=== PATIENT | male | born 1965 | race Hispanic/Latino ===

== ENCOUNTER 2018-06-03 14:26 | Outpatient (CLI) | payer SELFPAY | END 2018-06-03 14:27 | disposition home or self-care (01) | LOC: WCC 14:26 | PROVIDERS: ATTEND Family Medicine | DX: T81.89XD Other complications of procedures, not elsewhere classified, subsequent encounter (principal) | CPT/HCPCS: 97605 ==

== ENCOUNTER 2018-06-06 14:11 | Outpatient (CLI) | payer SELFPAY | END 2018-06-06 14:12 | disposition home or self-care (01) | LOC: WCC 14:11 | PROVIDERS: ATTEND Family Medicine | DX: T81.89XD Other complications of procedures, not elsewhere classified, subsequent encounter (principal) | CPT/HCPCS: 97605 ==

== ENCOUNTER 2018-06-10 09:02 | Outpatient (CLI) | payer MEDICARE, SELFPAY ==
[2018-06-10] MEDS ORDERED: Sodium Chloride 0.9% 15 ML NEB ONE (10:22)
--- NOTE | 2018-06-10 11:43 | HP ---
DATE OF ADMISSION: 06/10/2018 HISTORY OF PRESENT ILLNESS: Mr. Tyrel Bernal is a very pleasant 52-year-old gentleman who presen ts to the Wound Center for evaluation of a rectal wound subsequent to surgery for rectal carcinoma at [facility]. The patient states that he also received chemotherapy and radiation therapy for re ctal carcinoma, which he completed approximately 2 years ago. An ileostomy was placed at the time of his surgery. He states that for the nonhealing surgical wound, he received negative pressure therap y for approximately 6-7 months. The patient states he was referred to Dr. Norman in [place] for evalu ation for ileostomy takedown. The patient states that ileostomy takedown was not able to be accompli shed and after surgery, negative pressure therapy for the rectal wound was resumed. The patient stat es that a nephrostomy tube on the left was placed approximately 3 weeks ago. He states that prior to nephrostomy tube placement, urine was draining into his wound VAC canister. PAST MEDICAL HISTORY: Rectal carcinoma. PAST SURGICAL HISTORY: Surgery for rectal carcinoma as per [facility] and surgery for attempted ileostomy libia estrella. MEDICATIONS: 1. P.o. antibiotics. 2. Tramadol. ALLERGIES: No known diagnosed allergies. SOCIAL HISTORY: Significant for tobacco use of 1 pack of cigarettes every 2 weeks for approximately 1 year. The patient states that he stopped smoking 2-1/2 years ago. The patient admits to the socia l consumption of alcohol every other week. FAMILY HISTORY: Significant for diabetes mellitus. The patient's father was diagnosed with diabetes mellitus. Family history is also significant for coronary artery disease. The patient's father was diagnosed with coronary artery disease. PHYSICAL EXAMINATION: VITAL SIGNS: Temperature 97.9, pulse 111, respirations 19, blood pressure 115/69. GENERAL: A 52-year-old gentleman lying on table in examination room, in no acute distress. HEENT: Normocephalic, atraumatic. NECK: No nuchal rigidity. CHEST: Clear to auscultation. CARDIAC: Regular rate and rhythm. ABDOMEN: Soft. EXTREMITIES: No clubbing or cyanosis. NEUROLOGIC: Grossly nonfocal. BACK: A rectal wound is present, which measures approximately 3.2 x 0.2 cm. The depth of the wound is approximately 8 cm. No purulent drainage is associated with the wound. No erythema of the skin s urrounding the wound is present. No maceration of the skin of the periwound is noted. ASSESSMENT AND PLAN: Rectal wound as described above. Negative pressure therapy will be continued w ith dressing changes of the wound VAC here in the Wound Center. The patient states that he will be s een by Dr. Norman next week. I will see Mr. Bernal again after he has been seen by Dr. Norman. T he patient is to continue p.o. antibiotics as previously prescribed.
== END 2018-06-10 09:03 | disposition home or self-care (01) ==
LOC: WCC 09:02
PROVIDERS: ATTEND Family Medicine
DX: Z48.3 Aftercare following surgery for neoplasm (principal)
CPT/HCPCS: 97139; 97605; G0463; 99203; A4218

== ENCOUNTER 2018-06-13 15:51 | Outpatient (CLI) | payer MEDICARE, SELFPAY ==
[~2018-06-13 15:51] MED LIST: Sodium Chloride 0.9% 15 ML NEB ONE
== END 2018-06-13 15:52 | disposition home or self-care (01) ==
LOC: WCC 15:51
PROVIDERS: ATTEND Family Medicine
DX: T81.89XD Other complications of procedures, not elsewhere classified, subsequent encounter (principal)
CPT/HCPCS: 97605; A4218

== ENCOUNTER 2018-06-18 15:56 | Outpatient (CLI) | payer SELFPAY | END 2018-06-18 15:57 | disposition home or self-care (01) | LOC: WCC 15:56 | PROVIDERS: ATTEND Family Medicine | DX: T81.89XD Other complications of procedures, not elsewhere classified, subsequent encounter (principal) | CPT/HCPCS: 97605; A4218 ==

== ENCOUNTER 2018-06-20 15:54 | Outpatient (CLI) | payer SELFPAY ==
--- NOTE | 2018-06-20 19:07 | PRG ---
DATE OF SERVICE: 06/20/2018 HISTORY: Mr. Tyrel Bernal is a very pleasant 52-year-old gentleman who presents to the Wound [facility] for evaluation of a rectal wound subsequent to surgery for rectal carcinoma at [facility]. The patient previously stated that he received chemotherapy and radiation therapy for rectal carcinom a which he completed approximately 2 years ago and ileostomy was placed at the time of his surgery. He states that for the nonhealing surgical wound, he received negative pressure therapy for approxima tely 6-7 months. The patient stated he was referred to Dr. Azevedo in [place] for evaluation for ileos juan takedown. The patient stated that ileostomy takedown was not able to be accomplished and after surgery, negative pressure therapy for the rectal wound was resumed. The patient stated that a nephr ostomy tube on the left was placed approximately 3 weeks ago. He stated that prior to nephrostomy tu be placement, urine was draining into his wound VAC canister. PHYSICAL EXAMINATION: VITAL SIGNS: Temperature 98.6, pulse 94, respirations 16, blood pressure 102/68. BACK: A rectal wound is present which measures approximately 1.0 x 0.5 cm. The depth of the wound i s approximately 6.5 cm. The depth of the wound at the time of the patient's visit on 06/10/2018 was approximately 8 cm. No purulent drainage is associated with the wound. No erythema of the skin surr ounding the wound is present. No maceration of the skin of the periwound is noted. ASSESSMENT AND PLAN: Rectal wound as described above. Negative pressure therapy will be continued w ith dressing changes of the wound VAC here in the Wound Center. I will see Mr. Bernal again in tw o weeks.
== END 2018-06-20 15:55 | disposition home or self-care (01) ==
LOC: WCC 15:54
PROVIDERS: ATTEND Family Medicine
DX: T81.89XD Other complications of procedures, not elsewhere classified, subsequent encounter (principal)
CPT/HCPCS: 97602

== ENCOUNTER 2018-06-24 15:51 | Outpatient (CLI) | payer SELFPAY | END 2018-06-24 15:52 | disposition home or self-care (01) | LOC: WCC 15:51 | PROVIDERS: ATTEND Family Medicine | DX: T81.89XD Other complications of procedures, not elsewhere classified, subsequent encounter (principal) | CPT/HCPCS: 97605; A4218 ==

== ENCOUNTER 2018-06-27 15:49 | Outpatient (CLI) | payer SELFPAY | END 2018-06-27 15:50 | disposition home or self-care (01) | LOC: WCC 15:49 | PROVIDERS: ATTEND Family Medicine | DX: T81.89XD Other complications of procedures, not elsewhere classified, subsequent encounter (principal) | CPT/HCPCS: 97605; A4218 ==

== ENCOUNTER 2018-07-01 15:54 | Outpatient (CLI) | payer SELFPAY | END 2018-07-01 15:55 | disposition home or self-care (01) | LOC: WCC 15:54 | PROVIDERS: ATTEND Family Medicine | DX: T81.89XD Other complications of procedures, not elsewhere classified, subsequent encounter (principal) | CPT/HCPCS: 99211; G0463 ==

== ENCOUNTER 2018-07-01 16:21 | Inpatient (IN) | payer MEDICARE, SELFPAY ==
[~2018-07-01 16:21] MED LIST changes: +ISOVUE-370 76%-LOCM 1 ML ONE; -Sodium Chloride 0.9% 15 ML NEB ONE
[2018-07-01 16:49] LABS: #Basophils 0.1 thou/uL (0.0-0.2); #Lymphocytes 1.6 thou/uL (1.20-3.40); #Monocytes 0.9 thou/uL (0.11-0.59); #Neutrophils 8.8 thou/uL (1.40-6.50); %Basophils 0.4 % (0.0-1.0); %Eosinophils 0.1 % (0.0-10.0); %Lymphocytes 13.8 % (21.0-51.0); %Neutrophils 77.7 % (42.0-75.0); Hemoglobin 10.7 g/dL (14.0-18.0); Mean Corpuscular Hemoglobin 24.7 pg (27.0-31.0); Mean Corpuscular Volume 77.2 fL (78.0-98.0); Mean Platelet Volume 6.5 fL (7.4-10.4); Platelet Count 328 thou/uL (130-400); RBC Distribution Width 16.4 % (11.5-14.5); Red Blood Cell (RBC) Count 4.32 mill/uL (4.70-6.10); White Blood Cell (WBC) Count 11.3 thou/uL (4.8-10.8)
--- NOTE | 2018-07-01 16:55 | RAD ---
CHEST 1 VIEW: Date: 07/01/18 HISTORY: Tachycardia. FINDINGS: No comparison. Cardiac silhouette is magnified by projection. Pulmonary vasculature is unremarkable. Mediastinum is midline. No confluent air space consolidation or evidence of pneumothorax. IMPRESSION: No active cardiopulmonary abnormalities are demonstrated. POS: [facility]
[2018-07-01 17:12] LABS: ALT (SGPT) 15 U/L (8-55); AST (SGOT) 14 U/L (5-34); Albumin 4.6 g/dL (3.5-5.0); Alkaline Phosphatase 142 U/L (40-150); Anion Gap 14 mmol/L (10-20); BUN (Urea Nitrogen) 8 mg/dL (8.9-20.6); Bilirubin, Total 1.2 mg/dL (0.2-1.2); Calc. Creatinine Clearance 0 mL/min (70-130); Calcium 9.9 mg/dL (7.8-10.44); Carbon Dioxide 21 mmol/L (22-29); Chloride 100 mmol/L (98-107); Estimated GFR-MDRD Greater than 90; Globulin 4.4 g/dL (2.4-3.5); Glucose 111 mg/dL (70-105); Potassium 3.4 mmol/L (3.5-5.1); Sodium 132 mmol/L (136-145)
--- NOTE | 2018-07-01 18:56 | CT ---
CT ANGIOGRAM THORAX WITH IV CONTRAST AND 3D RECONSTRUCTIONS: 07/01/2018 HISTORY: Dyspnea. Tachycardia. Shortness of breath. FINDINGS: No filling defects are seen in the pulmonary arteries to suggest a pulmonary embolus. The thoracic a yohana is normal in caliber without evidence of an aortic dissection. There is a 4.6 cm x 2.8 cm, circumscribed, homogeneous, hypodense, cystic structure seen, just radha lateral to the level of the aortic root and adjacent to the pericardium, which demonstrates fluid att enuation, and probably represent a pericardial cyst. Mediastinal structures otherwise have a normal appearance. The lungs are clear bilaterally. There is partial visualization of the calcification in the gallbladder lumen, related to cholelithias is. The remainder of the upper abdomen demonstrates a normal CT appearance for the phase of imaging. IMPRESSION: 1. No CT evidence of a pulmonary embolus. 2. Findings likely related to a pericardial cyst within the middle anterior mediastinum. However, a s a conservative measure, a follow-up evaluation in four to six months is recommended. 3. Cholelithiasis. POS: [facility]
[2018-07-01 19:00] LABS: Bilirubin Negative (Negative); Blood, Urine Small (Negative); Clarity CLEAR (Clear); Glucose, Urine (Dipstick) Negative (Negative); Leukocyte Large (Negative); Nitrite Positive (Negative); Protein, Urine (Dipstick) Negative (Neg-Trace); Specific Gravity, Urine 1.006 (1.002-1.036); Urobilinogen 0.2 mg/dL (0.2-1.0); pH, Urine 8.5 (5.0-9.0)
[2018-07-01 19:01] LABS: Hyaline Casts/LPF 0-3 HYALINE CAST LPF (0-3 Hyaline); Pathc Cast-AUWi Flag 0.14 (0-2.49); RBC/HPF 0-3 HPF (0-3)
[2018-07-01] MEDS ORDERED: Acetaminophen 500 MG TAB ONE (19:12)
[2018-07-01 19:17] LABS: Bacteria/HPF 1+ HPF (None Seen)
[2018-07-01] MEDS ORDERED: Piperacillin/Tazobactam 4.5 GM VIAL ONE (19:28)
[2018-07-01] MEDS ORDERED: Clindamycin/D5W 600 mg/50 ml Premix Bag ONE (20:07)
[2018-07-01 20:22] LABS: Anion Gap 11 mmol/L (10-20); BUN (Urea Nitrogen) 7 mg/dL (8.9-20.6); Calc. Creatinine Clearance 0 mL/min (70-130); Calcium 8.1 mg/dL (7.8-10.44); Carbon Dioxide 20 mmol/L (22-29); Chloride 106 mmol/L (98-107); Estimated GFR-MDRD Greater than 90; Glucose 105 mg/dL (70-105); Potassium 3.2 mmol/L (3.5-5.1); Sodium 134 mmol/L (136-145)
[2018-07-01 20:23] LABS: CKMB 0.3 ng/mL (0-6.6); Troponin I Less than 0.010 ng/mL (< 0.028)
[2018-07-01 22:00] VITALS: BMI 23.8
[2018-07-01] MEDS: Dextrose 5 % And 0.9 % NaCl 1,000 ML IV SCH (22:09)
[2018-07-01] MEDS ORDERED: Vancomycin HCl 1 GM in Premix Bag 1 BAG IVPB SCH (22:15)
[2018-07-02] MEDS ORDERED: Ondansetron PF 4 MG/2 ML Vial ONE (04:46)
[2018-07-02] MEDS: Acetaminophen 325 MG TAB PO PRN (05:02)
[2018-07-02] MEDS: Dextrose 5 % And 0.9 % NaCl 1,000 ML IV SCH (05:59)
[2018-07-02] MEDS ORDERED: Bisacodyl 5 MG TAB PO PRN (06:30)
[2018-07-02] MEDS ORDERED: Ondansetron ODT 4 MG TAB PO PRN (06:30)
[2018-07-02] MEDS ORDERED: Ondansetron PF 4 MG/2 ML Vial IVP PRN (06:30)
[2018-07-02] MEDS ORDERED: Senokot S 8.6-50 MG TAB PO PRN (06:30)
[2018-07-02] MEDS ORDERED: Benzonatate 100 MG CAP PO PRN (07:21)
[2018-07-02] MEDS ORDERED: Calcium Carbonate 500 MG ChewTAB PO PRN (07:21)
[2018-07-02] MEDS ORDERED: HYDROcodone/Acetaminophen 5/325 mg Tablet PO PRN (07:21)
[2018-07-02] MEDS ORDERED: Diabetic Tussin 200 MG/10 ML UDCUP PO PRN (07:21)
[2018-07-02] MEDS ORDERED: Nitroglycerin 0.4 MG TAB (25 Tab Bottle) SL PRN (07:21)
[2018-07-02] MEDS ORDERED: hydrALAZINE 20 MG/ML VIAL SLOW IVP PRN (07:21)
[2018-07-02] MEDS ORDERED: cloNIDine 0.1 MG TAB PO PRN (07:21)
[2018-07-02 07:22] LABS: #Lymphocytes 0.8 thou/uL (1.20-3.40); #Monocytes 0.7 thou/uL (0.11-0.59); #Neutrophils 5.5 thou/uL (1.40-6.50); %Basophils 0.5 % (0.0-1.0); %Eosinophils 0.2 % (0.0-10.0); %Monocytes 10.1 % (0.0-10.0); %Neutrophils 78.1 % (42.0-75.0); Hemoglobin 8.8 g/dL (14.0-18.0); Mean Corpuscular HGB CONC 32.3 g/dL (32.0-36.0); Mean Corpuscular Hemoglobin 25.2 pg (27.0-31.0); Mean Platelet Volume 6.4 fL (7.4-10.4); Platelet Count 237 thou/uL (130-400); RBC Distribution Width 15.8 % (11.5-14.5); Red Blood Cell (RBC) Count 3.47 mill/uL (4.70-6.10); White Blood Cell (WBC) Count 7.1 thou/uL (4.8-10.8)
[2018-07-02 07:43] LABS: Anion Gap 10 mmol/L (10-20); BUN (Urea Nitrogen) 4 mg/dL (8.9-20.6); Calc. Creatinine Clearance 119 mL/min (70-130); Calcium 8.2 mg/dL (7.8-10.44); Carbon Dioxide 22 mmol/L (22-29); Chloride 105 mmol/L (98-107); Estimated GFR-MDRD Greater than 90; Glucose 124 mg/dL (70-105); Sodium 134 mmol/L (136-145)
[2018-07-02] MEDS: Vancomycin HCl 1 GM in Premix Bag 1 BAG IVPB SCH ×2 (07:53→15:27)
[2018-07-02] MEDS ORDERED: Potassium Chloride 20 MEQ TAB PO SCH (08:00)
[2018-07-02 08:04] LABS: Potassium 2.7 mmol/L (3.5-5.1)
[2018-07-02] MEDS ORDERED: Famotidine 20 MG TAB PO SCH (09:00)
[2018-07-02] MEDS: Acetaminophen 500 MG TAB PO PRN ×3 (09:05→20:27)
[2018-07-02] MEDS ORDERED: 1/2 NS w/KCL 20 mEq 1,000 ML IV SCH (11:30)
[2018-07-02] MEDS ORDERED: Potassium Chloride 40 MEQ in Sodium Chloride 0.9% 250 ML 250 ML IVPB SCH (11:45)
[2018-07-02] MEDS: Piperacillin/Tazobactam 3.375 GM in Sodium Chloride 0.9% 100 ML IVPB SCH ×3 (11:56→23:45)
--- NOTE | 2018-07-02 12:34 | HP ---
DATE OF ADMISSION: 07/02/2018 PRIMARY CARE PHYSICIAN: Out of town. CHIEF COMPLAINT: Fast heart rate. HISTORY OF PRESENT ILLNESS: Mr. Bernal is a very pleasant 52-year-old male with past medical hist ory of rectal cancer, status post surgery, chemotherapy, and radiation, who presented to the emergenc y room with the above-mentioned complaint. History is mainly obtained by the patient himself and [facility] medical records have been reviewed. Mr. Bernal has a wound at his site of surgery for rectal cancer and follows up at the [facility] with Dr. Grigsby. He was seen there yesterday and was found to be tachycardic, so he was sent to the emergency room. The patient himself reports that he has been feeling somewhat weak lately and is having chills and some shortness of breath on and off for about 2 weeks. In the emergency room, upon presentation, his heart rate was 131 with a blood pressure of 104/71. His temperature initially was 99.4, but a T-max of 100.1 was noticed in the emergency room. He was found to have a significan t foul odor from his sacral wound area with VAC sponge in place. His EKG showed sinus tachycardia. He underwent an infectious workup including a chest x-ray and a CT angio. CT angio was done for the tachycardia to rule out PE. It was negative or same. It did show a small pericardial cyst close to anterior mediastinum. Chest x-ray was unremarkable. His white count was elevated to 11.3 with a lef t shift and serum chemistry showed hypokalemia. He was given empiric antibiotics. His urinalysis al so had +1 bacteria. The patient has a complicated surgical history. He initially had an ileostomy for his rectal cancer, which was taken down. This was done approximately 2 years ago. He follows up with Dr. Azevedo in [facility], who did the ileostomy takedown. Unfortunately, he stated that the ileostomy takedown was not a ble to be accomplished, and after surgery, negative pressure therapy for the rectal wound was resumed . He went back to dialysis and had a colostomy placed along with a left-sided nephrostomy tube going to the leg bag and also a Chow catheter was placed a month ago, as he was found to have leakage of urine into his rectal wound. He reports that his catheter has since not been changed. He was suppos ed to go follow up with the urologist in [place], who did this and the nephrostomy tube, but missed th e appointment as it was for today. As for now, the patient feels well. His T-max has been 103 since being up on the floor. PAST MEDICAL HISTORY: 1. History of rectal carcinoma, status post surgery, chemotherapy, and radiation. 2. Surgical wound under care of Dr. Grigsby. PAST SURGICAL HISTORY: 1. History of surgery for rectal carcinoma. 2. Ileostomy with ileostomy changing to colostomy. 3. Left nephrostomy tube. ALLERGIES: No known medication allergies. SOCIAL HISTORY: He is and lives with his . No history of drug, tobacco, or significant alcohol abuse. FAMILY HISTORY: Significant for diabetes and coronary artery disease in his father. HOME MEDICATIONS: The patient currently is not on any medications at home. REVIEW OF SYSTEMS: A 12-point review of systems was done and it is negative except for those mention ed in the history and physical. LABORATORY EXAMINATION: His CBC shows WBCs at 7.1, down from 11.3; hemoglobin 8.8, down from 10.7; 7 8% neutrophils. Serum chemistry, repeat this morning, showed sodium of 134, potassium of 2.7, otherw ise unremarkable. Cardiac enzymes normal. Lactic acid normal at 1.9. Urinalysis shows positive nit rite, leukocyte esterase, wbc's, squamous epithelial cells, and +1 bacteria. Chest x-ray, by my revi ew, has no evidence to suggest pleural effusion, edema, or infiltrate. CT angio negative for pulmona ry embolism. The radiologist has mentioned anterior mediastinal cyst close to the heart with possibi lity of a pericardial cyst. PHYSICAL EXAMINATION: MOST RECENT VITAL SIGNS: Temperature 100.4, heart rate 98, saturating 96% on room air, blood pressur e 100/64, respirations 14. GENERAL EXAMINATION: In no acute distress, awake, alert, oriented x3, very pleasant. HEENT EXAMINATION: Mucous membrane is moist and pink. No oropharyngeal exudate or erythema. Head i s normocephalic, atraumatic. Pupils equal and reactive to light and accommodation. Extraocular move ment intact. NECK: Supple without any lymphadenopathy, JVD, or bruit. CHEST: Clear to auscultation without any wheezing, rales, or rhonchi. CARDIOVASCULAR: Rate and rhythm is regular without any murmur, rubs, or gallops. ABDOMEN: Soft, nontender, nondistended with positive bowel sounds. Colostomy bag is present with sc ant soft brown stool in it without any surrounding induration. He has a left-sided nephrostomy tube without any evidence of dehiscence or discharge going into the leg bag. He has a Chow catheter, whi ch has cloudy urine in it. EXTREMITIES: Free of any cyanosis, clubbing, or edema. NEUROLOGICAL EXAMINATION: Nonfocal. SKIN EXAMINATION: Wound pictures are reviewed as entered by the wound care people. PSYCHIATRIC: Normal affect. IMPRESSION AND PLAN: 1. Sepsis, likely source of infection is a combination of wound infection with urinary tract infecti on. He will be treated with broad-spectrum IV antibiotic with Zosyn and vancomycin for now. We will consult Infectious Disease specialist, Dr. Bowden, for further workup. Blood culture and urine cultu re have been obtained in the emergency room, and we will follow the results. 2. Sinus tachycardia, secondary to #1. It is much improved for now. We will start him and continue him on normal saline for now. 3. Hypokalemia. We will replace and recheck as necessary. We will start him on normal saline with potassium chloride supplementation as well. 4. Pericardial cyst in the setting of an infection. Further evaluation is warranted. We will order an echocardiogram to evaluate. 5. History of rectal cancer, status post surgery. Colostomy care, urostomy care will be provided wh ile he is here. We will have the Chow catheter changed, as it has been overdue. I have encouraged him to follow up with a urologist for either removal of the Chow catheter with self-catheterization at home versus a suprapubic catheter. He verbalized understanding. 6. Add pain medications and continue supportive care. 7. Deep venous thrombosis and gastrointestinal prophylaxis. DISPOSITION: Mr. Bernal is currently being admitted to the hospital for sepsis secondary to UTI a s well as wound infection. He is currently hemodynamically stable. Estimated length of stay at [facility] t 2-3 midnights. Further management will depend upon his clinical course.
[2018-07-02] MEDS: Potassium Chloride 20 MEQ in Sodium Chloride 0.45% 1,000 ML IV SCH ×2 (14:18→15:28)
[2018-07-02] MEDS: Enoxaparin Sodium 40 MG/0.4 ML SYRINGE SC SCH (20:25)
[2018-07-02] MEDS: Famotidine/PF 20 mg/2ml Vial SLOW IVP SCH (20:26)
--- NOTE | 2018-07-02 21:55 | CON ---
DATE OF CONSULTATION: 07/02/2018 REASON FOR CONSULTATION: Fever. HISTORY OF PRESENT ILLNESS: A 52-year-old patient with a history of rectal cancer with resection at [facility] and subsequent chemoradiation therapy in 2016. The patient had an ileostomy until re cently when he went to [place] and had a colostomy placed. The patient has lost his entire rectum and is not eligible for reanastomosis. He apparently has developed obstruction of the outflow tract of the left kidney and required a nephrostomy tube placement which he still has in place. He also has a Chow catheter which has been left in place since last admission to [facility]. He was brought to the hospital at this time with dyspnea, fever. PHYSICAL EXAMINATION: VITAL SIGNS: Initial findings included temperature 100.4 and then 103, heart rate 98, O2 sat 96%, bl ood pressure 164. GENERAL APPEARANCE: Initially appeared in no distress. NECK: Supple. LUNGS: Clear. HEART: Regular, without murmurs. ABDOMEN: Soft. Colostomy in place with normal appearance. He had a left nephrostomy tube with norm al appearance his initial findings included as well. LABORATORY DATA: White cell count 11.3, hemoglobin 10.7, platelets 328, 77% neutrophils. Sodium 132 , creatinine 0.87, normal liver profile. Serum total protein 9.0, albumin 4.6. Urinalysis with 4-6 wbc's and we have urine culture with Proteus mirabilis. Currently, he is awake. Appears chronically ill, but in no distress. Denies any headaches, no visua l symptoms, sore throat, odynophagia or dysphagia, no back pain, no dyspnea or chest pain anymore. N o abdominal pain. No neurological symptoms. PAST MEDICAL HISTORY: Rectal carcinoma resection, ileostomy and then colostomy, chronic wound to the perianal region managed with negative pressure dressing by Dr. Grigsby, obstruction of the left kidn ey, probably associated with consequences of radiation therapy with a left nephrostomy tube. Apparen tly also the other possibility that he had a perforation or rupture of the ureter left side with then development of extravasation of urine in the nephrostomy has been used to divert as a diversion. ALLERGIES: None. SOCIAL HISTORY: , never smoker. FAMILY HISTORY: Coronary artery disease and diabetes. CURRENT MEDICATIONS: Tylenol, [place], Tessalon, Dulcolax, Tums, Catapres, Lovenox, Pepcid, Robitussin , Apresoline, Nitrostat, Zofran, Zosyn, vancomycin. PHYSICAL EXAMINATION: VITAL SIGNS: T-max 103. He is currently 99.9, blood pressure 97/66, pulse 100, respirations 18, O2 sat 95%. GENERAL: Chronically ill appearing, but in no acute distress. SKIN: Left-sided nephrostomy tube and Chow catheter in place and peripheral IV access and negative pressure dressing to the rectal perianal wound. HEENT: Ocular movements are conjugate. Oral cavity with few missing teeth. NECK: Supple. No jugular distention. LUNGS: With symmetric clear breath sounds. CARDIOVASCULAR: S1, S2, regular rate without murmurs. ABDOMEN: Soft and nondistended. No tenderness. No bladder distention. EXTREMITIES: No joint inflammatory activity. Pulses are 1+ in dorsalis pedis. He moves extremities equally. NEUROLOGIC: Cognitive function appears to be intact. LABORATORY DATA AND IMAGING DATA: White cell count now is down to 7.1, hemoglobin 8.8, platelets 237 with 78% neutrophils. Sodium 134, creatinine 0.77. The microbiology data as noted above. [facility] eptibility profile of the Proteus is pending. There is a CT angiogram completed with no pulmonary em bolism, possible pericardial cyst and some cholelithiasis. ASSESSMENT: 1. Rectal cancer in remission after radical surgery, chemoradiation therapy. 2. Ileostomy converted to colostomy. 3. 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 4. Fever with abnormal urinalysis and positive urine cultures. DISCUSSION AND PLAN: Differential diagnosis includes urosepsis associated with the instrumentation o f the left kidney outflow tract or the Chow catheter. Respiratory tract infection appears to be les s likely. I think the wound looks okay and does not appear to be the culprit here, although I did no t remove the negative pressure dressing, but according to , the wound continues to improve steadi ly. No evidence of respiratory tract infection. We will discontinue vancomycin and continue the Zos yn until we have susceptibility studies back in reference to the Proteus mirabilis as awaited. Hopef ully allow us to switch him to oral quinolone for discharge planning. I believe the stent will be re placed tomorrow and will have to continue to be replaced on regular schedule after that. Hopefully, they will be able to correct this left-sided ureteric problem to allow removal of the stent and decre ase the risk of recurrences of this process in the future.
[2018-07-02 23:21] LABS: Vancomycin, Trough 10.5 ug/mL
[2018-07-03] MEDS: Vancomycin HCl 1.25 GM in Sodium Chloride 0.9% 250 ML 250 ML IVPB SCH ×3 (00:27→16:03)
[2018-07-03] MEDS: Potassium Chloride 20 MEQ in Sodium Chloride 0.45% 1,000 ML IV SCH (00:27)
[2018-07-03 05:26] LABS: #Eosinphils 0.1 thou/uL (0.0-0.7); #Lymphocytes 0.9 thou/uL (1.20-3.40); #Monocytes 0.6 thou/uL (0.11-0.59); #Neutrophils 4.2 thou/uL (1.40-6.50); %Basophils 0.6 % (0.0-1.0); %Eosinophils 1.1 % (0.0-10.0); %Lymphocytes 15.6 % (21.0-51.0); %Neutrophils 72.8 % (42.0-75.0); Hemoglobin 9.3 g/dL (14.0-18.0); Mean Corpuscular HGB CONC 31.1 g/dL (32.0-36.0); Mean Corpuscular Hemoglobin 24.7 pg (27.0-31.0); Mean Corpuscular Volume 79.6 fL (78.0-98.0); Mean Platelet Volume 6.8 fL (7.4-10.4); Platelet Count 239 thou/uL (130-400); RBC Distribution Width 15.9 % (11.5-14.5); Red Blood Cell (RBC) Count 3.76 mill/uL (4.70-6.10); White Blood Cell (WBC) Count 5.8 thou/uL (4.8-10.8)
[2018-07-03] MEDS: Acetaminophen 500 MG TAB PO PRN (05:38)
[2018-07-03] MEDS: Piperacillin/Tazobactam 3.375 GM in Sodium Chloride 0.9% 100 ML IVPB SCH ×4 (05:38→23:06)
[2018-07-03 05:56] LABS: Anion Gap 11 mmol/L (10-20); BUN (Urea Nitrogen) 4 mg/dL (8.9-20.6); Calc. Creatinine Clearance 114 mL/min (70-130); Calcium 8.5 mg/dL (7.8-10.44); Carbon Dioxide 20 mmol/L (22-29); Chloride 108 mmol/L (98-107); Estimated GFR-MDRD Greater than 90; Glucose 98 mg/dL (70-105); Potassium 3.5 mmol/L (3.5-5.1); Sodium 135 mmol/L (136-145)
[2018-07-03] MEDS: Famotidine/PF 20 mg/2ml Vial SLOW IVP SCH ×2 (09:09→20:50)
--- NOTE | 2018-07-03 14:54 | PDOC.PN ---
- Subjective Encounter Start Date: 07/03/18 Encounter Start Time: 14:52 Subjective: feels very well.no new complainys -: no Abd pain,no diarrhea or bloody stools -: no chills - Objective Resuscitation Status: Resuscitation Status FULL:Full Resuscitation MAR Reviewed: Yes Vital Signs & Weight: Vital Signs (12 hours) Temp Pulse Resp BP Pulse Ox 07/03/18 13:15 98.4 F 94 18 106/71 94 L 07/03/18 08:00 99.2 F 94 L 07/03/18 07:12 99.2 F 94 18 102/67 94 L Weight Admit Weight 161 lb 4 oz Weight 161 lb 4 oz I&O: 07/02/18 07/03/18 07/04/18 06:59 06:59 06:59 Intake Total 3450 Output Total 7300 Balance -3850 Result Diagrams: 07/03/18 04:55 07/03/18 04:55 Additional Labs: Microbiology 07/02/18 12:00 Rectal - Wound Bacterial Culture - Preliminary 07/02/18 12:00 Rectal - Wound Gram Negative Jean-Paul 07/01/18 18:50 Urine claire catheter Urine Culture - Preliminary Proteus mirabilis 07/01/18 17:21 Venous blood - Left Arm Blood Culture - Preliminary Specimen has been received and culture in progress. No Growth to date. 07/01/18 17:16 Venous blood - Right Hand Blood Culture - Preliminary Specimen has been received and culture in progress. No Growth to date. Phys Exam - Physical Examination Constitutional: NAD HEENT: PERRLA, moist MMs, sclera anicteric, oral pharynx no lesions Neck: no nodes, no JVD, supple, full ROM Respiratory: no wheezing, no rales, no rhonchi, clear to auscultation bilateral Cardiovascular: RRR, no significant murmur, no rub Gastrointestinal: soft, non-tender, no distention Musculoskeletal: no edema, pulses present Neurological: non-focal, normal sensation, moves all 4 limbs Psychiatric: normal affect, A&O x 3 Skin: no rash Dx/Plan (1) Sepsis Code(s): A41.9 - SEPSIS, UNSPECIFIED ORGANISM Status: Acute (2) UTI (urinary tract infection) Status: Acute (3) Wound infection Code(s): T14.8XXA - OTHER INJURY OF UNSPECIFIED BODY REGION, INITIAL ENCOUNTER; L08.9 - LOCAL INFECTION OF THE SKIN AND SUBCUTANEOUS TISSUE, UNSP Status: Acute (4) Hypokalemia Code(s): E87.6 - HYPOKALEMIA Status: Acute (5) H/O malignant neoplasm of rectum Code(s): Z85.048 - PRSNL HX OF MALIG NEOPLM OF RECTUM, RECTOSIG JUNCT, AND ANUS Status: Chronic Comment: s/p Sx (6) Colostomy in place Code(s): Z93.3 - COLOSTOMY STATUS Status: Chronic (7) Indwelling Claire catheter present Code(s): Z96.0 - PRESENCE OF UROGENITAL IMPLANTS Status: Chronic - Plan continue antibiotics, PT/OT, out of bed/ambulate, DVT proph w/SCDs cont empiric ABx. urine Cx w proteus.Pretty sensitive to various ABx -: cont wound care. -: HD stable. fever finally better.monitor -: [facility] home in next 24-48 hrs w Po ABx -: ECHO pending to evaluate pericardial Cyst * . Review of Systems - Review of Systems Constitutional: negative: fever, chills, sweats, weakness, malaise, other ENT: negative: Ear Pain, Ear Discharge, Nose Pain, Nose Discharge, Nose Congestion, Mouth Pain, Mouth Swelling, Throat Pain, Throat Swelling, Other Respiratory: negative: Cough, Dry, Shortness of Breath, Hemoptysis, SOB with Excertion, Pleuritic Pain, Sputum, Wheezing Cardiovascular: negative: chest pain, palpitations, orthopnea, paroxysmal nocturnal dyspnea, edema, light headedness, other Gastrointestinal: negative: Nausea, Vomiting, Abdominal Pain, Diarrhea, Constipation, Melena, Hematochezia, Other Genitourinary: negative: Dysuria, Frequency, Incontinence, Hematuria, Retention , Other Musculoskeletal: negative: Neck Pain, Shoulder Pain, Arm Pain, Back Pain, Hand Pain, Leg Pain, Foot Pain, Other Skin: negative: Rash, Lesions, Blas, Bruising, Other Neurological: negative: Weakness, Numbness, Incoordination, Change in Speech, Confusion, Seizures, Other - Medications/Allergies Allergies/Adverse Reactions: Allergies Allergy/AdvReac Type Severity Reaction Status Date / Time No Known Allergies Allergy Verified 07/01/18 21:57 Medications: Current Medications Acetaminophen (Tylenol) 650 mg PO Q6H PRN PRN Reason: Headache/Fever or Pain Last Admin: 07/02/18 05:02 Dose: 650 mg Acetaminophen (Tylenol) 1,000 mg PO Q6H PRN PRN Reason: Mild Pain (1-3) Last Admin: 07/03/18 05:38 Dose: 1,000 mg Hydrocodone Bitart/Acetaminophen ([place] 5/325) 1 tab PO Q4H PRN PRN Reason: Moderate Pain (4-6) Benzonatate (Tessalon) 100 mg PO Q6H PRN PRN Reason: Cough Bisacodyl (Dulcolax) 10 mg PO DAILYPRN PRN PRN Reason: Constipation Calcium Carbonate (Tums) 1,000 mg PO Q4H PRN PRN Reason: Heartburn or Indigestion Clonidine (Catapres) 0.1 mg PO Q4H PRN PRN Reason: SBP > _160___ Enoxaparin Sodium (Lovenox) 40 mg SC 2100 [facility] Last Admin: 07/02/18 20:25 Dose: 40 mg Famotidine (Pepcid) 20 mg SLOW IVP BID [facility] Last Admin: 07/03/18 09:09 Dose: 20 mg Guaifenesin (Robitussin Sf) 200 mg PO Q4H PRN PRN Reason: Cough Hydralazine HCl (Apresoline) 10 mg SLOW IVP Q4H PRN PRN Reason: SBP > 180 and HR < 70 Piperacillin Sod/Tazobactam (Sod 3.375 gm/ Sodium Chloride) 100 mls @ 200 mls/ hr IVPB Q6HR [facility] Last Admin: 07/03/18 11:32 Dose: 100 mls Potassium Chloride 20 meq/ (Sodium Chloride) 1,010 mls @ 75 mls/hr IV INF [facility] Last Admin: 07/03/18 00:27 Dose: 1,010 mls Vancomycin HCl 1.25 gm/ Sodium (Chloride) 250 mls @ 166.667 mls/hr IVPB 0800, 1600,2359 [facility] Last Admin: 07/03/18 09:09 Dose: 250 mls Miscellaneous Medication (Pharmacy To Dose) 0 each IVPB PRN PRN PRN Reason: [facility] Pharmacy to Dose Nitroglycerin (Nitrostat) 0.4 mg SL Q5MIN PRN PRN Reason: Chest Pain Ondansetron HCl (Zofran Odt) 4 mg PO Q6H PRN PRN Reason: Nausea/Vomiting Ondansetron HCl (Zofran) 4 mg IVP Q6H PRN PRN Reason: Nausea/Vomiting Last Admin: 07/02/18 09:03 Dose: 4 mg Senna/Docusate Sodium (Senokot S) 2 tab PO BIDPRN PRN PRN Reason: Constipation Sodium Chloride (Flush - Normal Saline) 10 ml IVF Q12HR [facility] Last Admin: 07/03/18 09:10 Dose: 10 ml Sodium Chloride (Flush - Normal Saline) 10 ml IVF PRN PRN PRN Reason: Saline Flush
--- NOTE | 2018-07-03 18:20 | PRG ---
DATE OF SERVICE: 07/03/2018 SUBJECTIVE: Feeling better. The Chow catheter has been exchanged. No respiratory symptoms, no abdominal pain. PHYSICAL EXAMINATION: VITAL SIGNS: T-max 102.7 yesterday at 8:00 p.m., it is now 98.4. Other vital signs are normal. O2 sat 94%. GENERAL: Appears no distress, oriented. LUNGS: Clear to auscultation and percussion. HEART: S1, S2, regular rate. ABDOMEN: Soft, nondistended. Chow catheter in place and the nephrostomy tube in place. LABORATORY DATA: White cell count 5.8, hemoglobin 9.3, platelets 239, creatinine 0.8, sodium 135. Microbiology with gram negative laurel from the rectal wound and Proteus mirabilis from the Chow catheter with very susceptible phenotype except for nitrofurantoin. 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 Fever and abnormal urinalysis. Again, the most likely scenario is pyelonephritis and would consider switching him to oral ciprofloxacin for discharge planning. Follow up with Dr. Nkiolay Rcih at [facility], probably needs to have nephrostomy tube exchanged. PETER
[2018-07-03] MEDS: Enoxaparin Sodium 40 MG/0.4 ML SYRINGE SC SCH (20:50)
[2018-07-03] MEDS: Acetaminophen 325 MG TAB PO PRN (20:51)
[2018-07-03 23:23] LABS: Vancomycin, Trough 20.9 ug/mL
[2018-07-04] MEDS: Vancomycin HCl 1.25 GM in Sodium Chloride 0.9% 250 ML 250 ML IVPB SCH ×2 (00:10→08:19)
[2018-07-04] MEDS: Piperacillin/Tazobactam 3.375 GM in Sodium Chloride 0.9% 100 ML IVPB SCH ×2 (05:49→08:23)
[2018-07-04] MEDS: Famotidine/PF 20 mg/2ml Vial SLOW IVP SCH (08:25)
[2018-07-04 08:48] VITALS: BP 109/69; TEMP 98.2
--- NOTE | 2018-07-04 11:42 | PQF ---
CLINICAL DOCUMENTATION IMPROVEMENT CLARIFICATION FORM: ICD-10 Updated PLEASE DO AN ADDENDUM TO THE PROGRESS NOTE WITH ANY DOCUMENTATION UPDATES OR ADDITIONS AND CARRY THROUGH TO DC SUMMARY. THANK YOU. DATE: 07/04/18 ATTN: Dr. Marcos Please exercise your independent, professional judgment in responding to the clarification form. Clinical indicators are provided on the bottom of this form for your review Please check appropriate box(es): [ X] Sepsis due to UTI due to claire catheter. [ ] Sepsis due to: [ ] Other diagnosis [ ] Unable to determine In addition, please specify: Present on Admission (POA): [ X ] Yes [ ] No [ ] Unable to determine For continuity of documentation, please document condition throughout progress notes and discharge summary. Thank You. CLINICAL INDICATORS - SIGNS / SYMPTOMS / LABS H&P 07/01: TEMP 100.4 HAD A COLOSTOMY PLACED ALONG WITH A LEFT-SIDED NEPHROSTOMY TUBE GOING TO THE LEG BAG & ALSO A CLAIRE CATHETER WAS PLACED A MONTH AGO, HE WAS FOUND TO HAVE LEAKAGE OF URINE INTO HIS RECTAL WOUND. PN 07/03: URINE CLAIRE CATHETER URINE CULTURE - PRELIMINARY PROTEUS MIRABILIS RISKS: H&P: CLAIRE CATHETER WAS PLACED A MONTH AGO. ADMITTED TO THE HOSPITAL FOR SEPSIS SECONDARY TO UTI WELL WOUND INFECTION. TREATMENT: H&P: WE WILL HAVE THE CLAIRE CATHETER CHANGED, IT HAS BEEN OVERDUE. ID CONSULT CPOE 07/02: ZOSYN 3.375 GM IV Q6 HR CPOE 07/02: VANCOMYCIN IV Thank you, Carrie (This form is maintained as a part of the permanent medical record) 2015 [employer]. All Rights Reserved Carrie Martin RN, [email or web address] Office: [phone] [facility]
--- NOTE | 2018-07-05 02:56 | DIS ---
DATE OF ADMISSION: 07/01/2018 DATE OF DISCHARGE: 07/04/2018 CONDITION AT THE TIME OF DISCHARGE: Stable and improved. PRIMARY CARE PHYSICIAN: Serjio Salas M.D. DISCHARGE DIAGNOSES: 1. Sepsis. 2. Urinary tract infection. 3. Rectal wound without any evidence of active infection due to rectal cancer surgery. He is under the care of [facility] with Dr. Grigsby. 4. Hypokalemia, resolved. 5. History of rectal carcinoma, status post surgery with colostomy and indwelling Chow catheter and left urostomy tube. DISCHARGE DISPOSITION: Home. PENDING TESTS AT THE TIME OF DISCHARGE: The results of the transthoracic echocardiogram. DISCHARGE MEDICATIONS: Ciprofloxacin 500 mg p.o. b.i.d. for 10 days and Florastor 250 mg p.o. daily for 14 days. INHOUSE CONSULTATIONS: 1. Infectious Disease, Dr. Bowden. 2. Wound Care. PROCEDURES DONE IN HOSPITAL: CT angio of the thorax, which shows no evidence of pulmonary embolism, but there is a small finding o f possible pericardial cyst within the middle anterior mediastinum. HISTORY OF PRESENT ILLNESS: Mr. Bernal is a 52-year-old male with past medical history o f rectal cancer, status post colostomy, left urostomy tube as well as indwelling Chow catheter, who has a rectal wound at the surgical site under care of Dr. Grigsby, came to the emergency room with co mplaints of fast heart rate. He was found to be febrile and tachycardic. CT angio was done, which w as unremarkable. Chest x-ray was unremarkable. Urinalysis was consistent with infection and there w as some question of wound infection as well. He was admitted with a presumptive diagnosis of sepsis. Please see admission history and physical for further detail. HOSPITAL COURSE: The patient was started on sepsis protocol with IV antibiotics and IV fluids and wa s hemodynamically stable. Infectious Disease was consulted and cultures were sent. Wound care was c alled as well. It seems after close examination, it seemed like his rectal cancer surgery site wound is not infected. He indeed had Proteus infection of the urine, which was resistant only to nitrofur antoin, otherwise pansensitive. He was initially treated with IV antibiotic and Dr. Bowden saw the [facility], recommended oral ciprofloxacin for discharge. This was done and he was discharged as he is he modynamically stable, afebrile and has clinically improved. He will follow up with Dr. Bowden in outp atient setting as well as with primary care physician. With regard to the possible pericardial cyst and the CT angio done in the ER, an echocardiogram was d one and the results are pending at this time. He will follow up with his primary care physician with regard to the results. Discharge planning was done and at this time, the patient is independent with his ADLs and IADLs and lives at home with his , so no discharge needs were voiced. He will be discharged. He was seen and examined prior to discharge. PHYSICAL EXAMINATION: VITAL SIGNS: This morning, temperature 98.2, pulse of 95, respirations 18, saturating 94% on room ai r, blood pressure 109/69. No acute distress, sitting up in bed and eating, awake, alert, oriented x3 . CHEST: Clear to auscultation bilaterally. Rate and rhythm is regular. LABORATORY DATA: CBC shows WBC is 5.8, which was 11.3 upon presentation. Hemoglobin is 9.3, which w as 10.7 upon presentation. Serum chemistry shows sodium 135, potassium 3.5, chloride 100, bicarbonat e 20. His rectal wound is also showing Proteus and possible Pseudomonas. Blood culture negative x2. Influenza testing negative. Urine culture shows Proteus mirabilis, plus presumptive Enterococcus l ess than 100,000. Coag negative Staph less than 100,000. Total time spent in the discharge of this patient 32 minutes.
== END 2018-07-04 15:58 | disposition home health service (06) | DRG 698 ==
LOC: ERS 16:21 → T4-A 20:58
PROVIDERS: ADMIT Internal Medicine; ATTEND Internal Medicine
DX: T83.518A Infection and inflammatory reaction due to other urinary catheter, initial encounter (principal); A41.9 Sepsis, unspecified organism; N39.0 Urinary tract infection, site not specified; I31.8 Other specified diseases of pericardium; Z85.048 Personal history of other malignant neoplasm of rectum, rectosigmoid junction, and anus; Z92.21 Personal history of antineoplastic chemotherapy; Z92.3 Personal history of irradiation; Z93.3 Colostomy status; E87.6 Hypokalemia; B96.4 Proteus (mirabilis) (morganii) as the cause of diseases classified elsewhere; B96.5 Pseudomonas (aeruginosa) (mallei) (pseudomallei) as the cause of diseases classified elsewhere
CPT/HCPCS: 36415; 71045; 71275; 80048; 80053; 80202; 81003; 81015; 82553; 83605; 84484; 85025; 87040; 87070; 87077; 87086; 87186; 87205; 93005; 93306; 96361; 96365; 96367; J1650; J2405; J2543; J3370; J3480; J3490; J7050; S0028